=== PATIENT | male | born 1965 | race Caucasian/White ===

== ENCOUNTER 2017-10-05 19:00 | Emergency (ER) | payer MEDICAID, SELFPAY ==
--- NOTE | 2017-10-05 19:43 | EDM.PDOC ---
ED HPI GENERAL MEDICAL PROBLEM - General Chief Complaint: General Stated Complaint: ABRASIAN ON FACE SENT FROM [facility] Time Seen by Provider: 10/05/17 19:19 Source of Information: Reports: Patient History Limitations: Reports: No Limitations - History of Present Illness INITIAL COMMENTS - FREE TEXT/NARRATIVE: The patient underwent a needle biopsy of a tumor to the right side of his neck per the interventional radiologist Dr. Chrystal Zaman at [facility] around 13: 00 this afternoon. The wound was dressed with Steri-Strips and Tegaderm. He was instructed to take Tylenol as needed for pain. He states that he noticed blood under the Tegaderm around 17:00 this afternoon. He states that the wound hurts. The patient is not on aspirin or any other blood thinner. The patient's PCP is Dr. Elkins. Right Neck Pain Score (Numeric/FACES): 9 - Related Data Allergies Allergy/AdvReac Type Severity Reaction Status Date / Time No Known Allergies Allergy Verified 02/09/15 15:57 Home Meds: Home Meds Nicotine [Habitrol] 21 mg TRDERM DAILY #30 patch 02/11/15 [Rx] Gemfibrozil [Lopid] 600 mg PO BID 10/05/17 [History] Insulin Aspart [NovoLOG] 15 unit SUBCUT TIDAC 10/05/17 [History] Insulin Detemir [Levemir] 34 unit INJECT BEDTIME 10/05/17 [History] Insulin Detemir [Levemir] 330 unit SUBCUT DAILY 10/05/17 [History] Lisinopril 10 mg PO DAILY 10/05/17 [History] atorvaSTATin [Lipitor] 10 mg PO BEDTIME 10/05/17 [History] Past Medical History Cardiovascular History: Reports: High Cholesterol, Hypertension Musculoskeletal History: Reports: Arthritis Neurological History: Reports: Neuropathy, Diabetic Endocrine/Metabolic History: Reports: Diabetes, Type II, Obesity/BMI 30+ - Past Surgical History GI Surgical History: Reports: Appendectomy Neurological Surgical History: Reports: Lumbar Spine ( fusion) Social & Family History - Tobacco Use Smoking Status *Q: Current Every Day Smoker Years of Tobacco use: 22 Packs/Tins Daily: 0.5 Packs/Tins Daily Comment: Down from 2 ppd - Alcohol Use Alcohol Use History: No - Recreational Drug Use Recreational Drug Use: Yes Drug Use in Last 12 Months: Yes Recreational Drug Type: Reports: Marijuana/Hashish (smokes twice a week) - Living Situation & Occupation Living situation: Reports: Single, Alone Occupation: Unemployed ED ROS GENERAL - Review of Systems Review Of Systems: ROS reveals no pertinent complaints other than HPI. ED EXAM, SKIN/RASH Exam: See Below Exam Limited By: No Limitations General Appearance: Alert, WD/WN, No Apparent Distress Eye Exam: Bilateral Eye: Normal Inspection Ears: Normal External Exam, Hearing Grossly Normal Nose: Normal Inspection Throat/Mouth: Normal Inspection, Normal Lips, Normal Voice, No Airway Compromise Head: Atraumatic, Normocephalic Neck: Other (The right side of the neck is swollen. There is Tegaderm to the right side of the neck under which there is a small pool of blood. When removed , less than 1 mL of blood was trapped under the Tegaderm. There are 2 Steri- Strips which had been soaked with blood and were no longer effectively sticking to the skin. When cleaned off, there is a small puncture wound, consistent with a needle biopsy, under the Tegaderm. No active bleeding, however, when pressed, a drop of blood was able to be expressed.) Respiratory/Chest: No Respiratory Distress Course - Vital Signs Last Recorded V/S: Last Vital Signs Temp 36.6 C 10/05/17 19:21 Pulse 94 10/05/17 19:21 Resp 20 10/05/17 19:21 BP 140/82 10/05/17 19:21 Pulse Ox 94 L 10/05/17 19:21 - Re-Assessments/Exams Free Text/Narrative Re-Assessment/Exam: 10/05/17 19:39 The patient underwent what appears to be a fine-needle biopsy of a right neck tumor earlier today, and presents because of some bleeding to the area. A small amount of blood under the Tegaderm looked fairly large, however, when the Tegaderm was removed, only a few drops was present. The wound itself bleeds only slightly if pressed, and not all if left alone. I will have Zakiya HERNANDEZ replace the Steri-Strips and Tegaderm, then the patient may safely be discharged home. Departure - Departure Time of Disposition: 19:40 Disposition: Home, Self-Care 01 Condition: Good Clinical Impression: Postoperative bleeding from incision - Discharge Information Referrals: Wayne Elkins MD [Primary Care Provider] - Forms: ED Department Discharge Additional Instructions: You were seen in the emergency room for bleeding following a needle biopsy. A small amount of blood pressed to the skin under the Tegaderm looked large, but was quite minimal. The Steri-Strips and Tegaderm have been replaced. If the wound appears to be bleeding again, placed direct pressure on it with your finger, for 10-15 minutes. This will stop the bleeding in the vast majority of cases. If any other problems, please do not hesitate to return to the ER.
[2017-10-05 20:04] VITALS: BP 153/97
== END 2017-10-05 20:00 | disposition home or self-care (01) ==
LOC: JD.ED 19:00
DX: L76.22 Postprocedural hemorrhage of skin and subcutaneous tissue following other procedure (principal); E78.00 Pure hypercholesterolemia, unspecified; I10 Essential (primary) hypertension; E11.9 Type 2 diabetes mellitus without complications; F17.210 Nicotine dependence, cigarettes, uncomplicated; Z79.899 Other long term (current) drug therapy; Z79.4 Long term (current) use of insulin
CPT/HCPCS: 99282; 99283

== ENCOUNTER 2017-10-14 15:49 | Emergency (ER) | payer MEDICAID ==
[2017-10-14] MEDS ORDERED: Iopamidol 755 Mg/ML 100 ML Bottle IVPUSH ONE (17:39)
[2017-10-14] MEDS ORDERED: Sodium Chloride 0.9% 20 ML SDV FLUSH ONE (17:40)
[2017-10-14] MEDS ORDERED: HYDROmorphone 0.5 MG/0.5 ML SYRINGE IVPUSH ONE ×2 (17:45→19:15)
[2017-10-14] MEDS ORDERED: Ondansetron 4 MG/2 ML SDV IVPUSH ONE (17:45)
--- NOTE | 2017-10-14 18:32 | CT ---
CT neck Technique: Multiple axial sections were obtained from above the external auditory canals inferiorly to the lung apices. Intravenous contrast was utilized. Findings: Large mass is identified within the right neck measuring approximately 4.1 cm x 4.3 cm. This appears to arise from the inferior right parotid salivary gland. Adjacent enlarged lymph node is seen measuring 1.9 cm. Others scattered smaller lymph nodes are seen which measure within normal limits. Inflammatory change is seen within the right neck. Visualized portions of the lung apices are clear. Bone window settings shows scattered degenerative change within the spine. Impression: 1. Large mass most likely within the inferior right parotid salivary gland. Adjacent enlarged lymph node is seen. Neoplastic change is a high possibility. 2. Slight inflammatory change within the subcutaneous soft tissues is seen possibly due to mild inflammatory change from infection. 3. No abscess is seen. Other incidental findings. Diagnostic code #9
--- NOTE | 2017-10-14 18:34 | EDM.PDOC ---
ED HPI GENERAL MEDICAL PROBLEM - General Chief Complaint: Skin Complaint Stated Complaint: RIGHT CYST PAIN ON FACE Time Seen by Provider: 10/14/17 17:56 Source of Information: Reports: Patient History Limitations: Reports: No Limitations - History of Present Illness INITIAL COMMENTS - FREE TEXT/NARRATIVE: 52 y/o M with R facial swelling. States he's had it for about a month. Saw Dr. Murry who referred him to [facility] for a biopsy. Biopsy was completed about a week ago by Dr. Zaman at [facility]. He hasn't received results yet. Comes in tonight because he has increased pain. States pain is now severe. Pain started 2 days ago gradually, before then it was painless. Pain is worse with palpation. No relieving factors. No fever/recent illness. No difficulty speaking or swallowing. No difficulty breathing. No chest pain/SOB. No vomiting. Right Face Pain Score (Numeric/FACES): 10 - Related Data Allergies Allergy/AdvReac Type Severity Reaction Status Date / Time No Known Allergies Allergy Verified 10/14/17 15:58 Home Meds: Home Meds Gemfibrozil [Lopid] 600 mg PO BID 10/05/17 [History] Insulin Aspart [NovoLOG] 15 unit SUBCUT TIDAC 10/05/17 [History] Insulin Detemir [Levemir] 30 unit SUBCUT DAILY 10/05/17 [History] Insulin Detemir [Levemir] 34 unit INJECT BEDTIME 10/05/17 [History] Lisinopril 10 mg PO DAILY 10/05/17 [History] atorvaSTATin [Lipitor] 10 mg PO BEDTIME 10/05/17 [History] Clindamycin HCl 300 mg PO QID #40 capsule 10/14/17 [Rx] Ibuprofen [Ibu] 800 mg PO TID PRN #40 tablet 10/14/17 [Rx] oxyCODONE 5 mg PO QID PRN #20 tab 10/14/17 [Rx] Past Medical History - Past Health History Medical/Surgical History: Denies Medical/Surgical History Other HEENT History: [place] Cardiovascular History: Reports: High Cholesterol, Hypertension Other Cardiovascular History: Elevated BP & pulse, never diagnosed Other Gastrointestinal History: frequent stomach aches. Other Genitourinary History: Urinary frequancy Musculoskeletal History: Reports: Arthritis Neurological History: Reports: Neuropathy, Diabetic Endocrine/Metabolic History: Reports: Diabetes, Type II, Obesity/BMI 30+ Other Dermatologic History: drynes and slow healing wounds on legs. - Past Surgical History GI Surgical History: Reports: Appendectomy Neurological Surgical History: Reports: Lumbar Spine Social & Family History - Tobacco Use Smoking Status *Q: Current Every Day Smoker Years of Tobacco use: 20 Packs/Tins Daily: 1 - Caffeine Use Caffeine Use: Reports: None - Recreational Drug Use Recreational Drug Use: Yes Drug Use in Last 12 Months: Yes Recreational Drug Type: Reports: Marijuana/Hashish - Living Situation & Occupation Living situation: Reports: Single, Alone Occupation: Unemployed ED ROS GENERAL - Review of Systems Review Of Systems: See Below Constitutional: Denies: Fever HEENT: Reports: Other (facial swelling ) Respiratory: Denies: Shortness of Breath Cardiovascular: Denies: Chest Pain Endocrine: Reports: No Symptoms GI/Abdominal: Denies: Abdominal Pain : Reports: No Symptoms Musculoskeletal: Reports: Neck Pain Skin: Reports: Lumps Neurological: Reports: No Symptoms Psychiatric: Reports: No Symptoms Hematologic/Lymphatic: Reports: No Symptoms Immunologic: Reports: No Symptoms ED EXAM, SKIN/RASH Exam: See Below Exam Limited By: No Limitations General Appearance: Alert, WD/WN, No Apparent Distress Eye Exam: Bilateral Eye: Normal Inspection Ears: Normal External Exam Nose: Normal Inspection Throat/Mouth: Normal Inspection, Normal Oropharynx, Normal Voice, No Airway Compromise Head: Atraumatic, Other (R parotid area mass, firm, large, approx 12 cm x 10 cm , extends just anterior to ear to below mandible, no erythema, no fluctuance, skin intact) Neck: Supple, Full Range of Motion Respiratory/Chest: No Respiratory Distress, Lungs Clear, Normal Breath Sounds, No Accessory Muscle Use Cardiovascular: Normal Peripheral Pulses, Regular Rate, Rhythm, No Edema GI/Abdominal: Soft, Non-Tender, No Distention. No: Rebound Extremities: Normal Inspection Neurological: Alert, Oriented, CN II-XII Intact, Normal Cognition, No Motor/ Sensory Deficits Psychiatric: Normal Affect, Normal Mood Skin: Warm, Dry, Intact, Normal Color, No Rash Course - Vital Signs Last Recorded V/S: Last Vital Signs Temp 36.6 C 10/14/17 20:00 Pulse 75 10/14/17 20:00 Resp 18 10/14/17 15:58 BP 159/81 H 10/14/17 20:00 Pulse Ox 94 L 10/14/17 20:00 - Orders/Labs/Meds Labs: Laboratory Tests 10/14/17 10/14/17 Range/Units 16:50 16:50 WBC 13.09 H (4.23-9.07) K/mm3 RBC 5.14 (4.63-6.08) M/mm3 Hgb 14.5 (13.7-17.5) gm/L Hct 43.2 (40.1-51.0) % MCV 84.0 (79.0-92.2) fl MCH 28.2 (25.7-32.2) pg MCHC 33.6 (32.2-35.5) g/dl RDW Std Deviation 41.9 (35.1-43.9) fL Plt Count 265 (163-337) K/mm3 MPV 11.2 (9.4-12.3) fl Neut % (Auto) 78.2 H (34.0-67.9) % Lymph % (Auto) 12.1 L (21.8-53.1) % Foard % (Auto) 8.9 (5.3-12.2) % Eos % (Auto) 0.4 L (0.8-7.0) Baso % (Auto) 0.2 (0.1-1.2) % Neut # (Auto) 10.25 H (1.78-5.38) K/mm3 Lymph # (Auto) 1.58 (1.32-3.57) K/mm3 Foard # (Auto) 1.16 H (0.30-0.82) K/mm3 Eos # (Auto) 0.05 (0.04-0.54) K/mm3 Baso # (Auto) 0.02 (0.01-0.08) K/mm3 Sodium 138 (136-145) mEq/L Potassium 4.1 (3.5-5.1) mEq/L Chloride 103 (98-107) mEq/L Carbon Dioxide 28 (21-32) mEq/L Anion Gap 11.1 (5-15) BUN 13 (7-18) mg/dL Creatinine 1.0 (0.7-1.3) mg/dL Est Cr Clr Drug Dosing 86.41 mL/min Estimated GFR (MDRD) > 60 (>60) mL/min BUN/Creatinine Ratio 13.0 L (14-18) Glucose 118 H (74-106) mg/dL Calcium 8.8 (8.5-10.1) mg/dL Total Bilirubin 0.4 (0.2-1.0) mg/dL AST 17 (15-37) U/L ALT 27 (16-63) U/L Alkaline Phosphatase 78 (46-116) U/L Total Protein 7.5 (6.4-8.2) g/dl Albumin 3.5 (3.4-5.0) g/dl Globulin 4.0 gm/dL Albumin/Globulin Ratio 0.9 L (1-2) Meds: Medications Discontinued Medications Generic Name Dose Route Start Last Admin Trade Name Freq PRN Reason Stop Dose Admin Hydromorphone HCl 0.5 mg 10/14/17 17:45 10/14/17 17:54 Dilaudid IVPUSH 10/14/17 17:46 0.5 mg ONETIME ONE Administration Hydromorphone HCl 1 mg 10/14/17 19:15 10/14/17 19:21 Dilaudid IVPUSH 10/14/17 19:16 1 mg ONETIME ONE Administration Ampicillin Sodium/Sulbactam 100 mls @ 200 mls/hr 10/14/17 18:59 10/14/17 19: 11 Sodium 3 gm/ Sodium Chloride IV 10/14/17 19:28 200 mls/hr ONETIME ONE Administration Iopamidol 80 ml 10/14/17 17:39 10/14/17 18:17 Isovue-370 (76%) IVPUSH 10/14/17 17:40 80 ml ONETIME ONE Administration Ondansetron HCl 4 mg 10/14/17 17:45 10/14/17 17:54 Zofran IVPUSH 10/14/17 17:46 4 mg ONETIME ONE Administration Sodium Chloride 20 ml 10/14/17 17:40 Normal Saline FLUSH 10/14/17 17:41 ONETIME ONE - Re-Assessments/Exams Free Text/Narrative Re-Assessment/Exam: 10/14/17 18:33 CBC shows mildly elevated WBC at 13. Chem is normal. CT neck ordered to further eval. 10/14/17 19:01 CT shows "large mass most likely within the inferior R parotid salivary gland. Adjacent enlarged lymph node is seen. Neoplastic change is a high possibility. Slight inflammatory change within the subcutaneous soft tissues is seen possibly due to mild inflammatory change from infection". Unasyn ordered. [facility] radha bates, discussed with Dr. Mcguire who recommends oral antibiotics and she will follow him up at [facility] at 8:30 AM this week Sunday morning. I discussed this with the patient. Discussed strict return precautions for fever or worsening symptoms. 10/14/17 21:32 Departure - Departure Time of Disposition: 19:14 Disposition: Home, Self-Care 01 Clinical Impression: Parotid mass, Infection of parotid gland - Discharge Information Prescriptions: Clindamycin HCl 300 mg PO QID #40 capsule Ibuprofen [Ibu] 800 mg PO TID PRN #40 tablet PRN Reason: Pain oxyCODONE 5 mg PO QID PRN #20 tab PRN Reason: Pain Referrals: Wayne Elkins MD [Primary Care Provider] - Forms: ED Department Discharge Additional Instructions: 1. Follow up with Dr. Mcguire (ENT at [facility]) on Sunday10/16/17 at 8: 30 central time at [facility] [address], phone [phone] 2. Take antibiotic as prescribed 3. Take ibuprofen and acetaminophen (Tylenol) as needed for pain. Take oxycodone as needed for severe pain. No driving/working while taking this med as it can make you sleepy or confused 4. Return to the ED if you have worsening pain, swelling, fever or other concerning symptoms.
[2017-10-14] MEDS ORDERED: Ampicillin/Sulbactam Na 3 GM in Sodium Chloride 0.9% 100 ML IV ONE (18:59)
[2017-10-14 20:02] VITALS: BP 159/81
== END 2017-10-14 20:04 | disposition home or self-care (01) ==
LOC: JD.ED 15:49
DX: K11.20 Sialoadenitis, unspecified (principal); I10 Essential (primary) hypertension; E11.9 Type 2 diabetes mellitus without complications; E66.9 Obesity, unspecified; F17.210 Nicotine dependence, cigarettes, uncomplicated; Z79.899 Other long term (current) drug therapy; Z79.4 Long term (current) use of insulin
CPT/HCPCS: 36415; 70491; 80053; 85025; 96365; 96375; 96376; 99284; J0295; J1170; J2405; J7030; Q9967